=== PATIENT | female | born 1965 | race Caucasian/White ===

== ENCOUNTER 2024-04-20 13:56 | Emergency (ER) | payer BC ==
[~2024-04-20] VITALS: Ht 170.2 cm; Wt 74.4 kg
[~2024-04-20 13:56] MED LIST: HYDROXYZINE HCL25 MG PO; MEDROL4 MG/DOSE-; ZEBETA10 MG PO
[2024-04-20 14:56] VITALS: PULSE 69; RESP 16; TEMP 97.9; O2SAT 98
== END 2024-04-20 14:56 | disposition home or self-care (01) ==
LOC: FSED 14:06
DX: M54.50 Low back pain, unspecified (principal); W18.39XD Other fall on same level, subsequent encounter; G89.29 Other chronic pain; I34.1 Nonrheumatic mitral (valve) prolapse; F17.210 Nicotine dependence, cigarettes, uncomplicated
CPT/HCPCS: 99283

== ENCOUNTER 2024-08-07 15:58 | Emergency (ER) | payer BC ==
[~2024-08-07] VITALS: Ht 170.2 cm; Wt 71.7 kg
[2024-08-07] MEDS: ONDANSETRON HCL INJ 2MG/ML 2ML 2 MG/ML VIAL IV STA (16:44)
[2024-08-07] MEDS: FAMOTIDINE 20 MG/2 ML VIAL IV STA (16:44)
[2024-08-07] MEDS: SODIUM CHLORIDE 0.9% 1000ML 1,000 ML IV ONE (16:44)
[2024-08-07] MEDS ORDERED: ONDANSETRON HCL INJ 2MG/ML 2ML 2 MG/ML VIAL ONE (17:44)
[2024-08-07] MEDS ORDERED: CARAFATE1 GM/10 ML PO (18:10)
[2024-08-07] MEDS ORDERED: ONDANSETRON ODT4 MG PO (18:11)
[2024-08-07 18:22] VITALS: PULSE 70; RESP 16; TEMP 97.6; O2SAT 99
== END 2024-08-07 18:22 | disposition home or self-care (01) ==
LOC: FSED 16:05
DX: R11.2 Nausea with vomiting, unspecified (principal); K21.9 Gastro-esophageal reflux disease without esophagitis; R82.1 Myoglobinuria; M54.9 Dorsalgia, unspecified; G89.29 Other chronic pain; Z86.79 Personal history of other diseases of the circulatory system
CPT/HCPCS: 80053; 81003; 82553; 84484; 85025; 93005; 96374; 96375; 99284; J2405; J7030